=== PATIENT | male | born 1950 | race Caucasian/White ===

== ENCOUNTER 2020-12-25 09:18 | Inpatient (IN) | payer OTHER ==
[~2020-12-25] VITALS: Ht 175.3 cm; Wt 95.3 kg
--- NOTE | ~2020-12-25 | HC ---
[facility] [place] [address] CONSULTATION Name: GOLDIEASIAJORDON Room #: 352-P ADM IN M.R.#: [id number] Admission: 12/25/20 Attend Phys: Rolando Egan MD Discharge: Date of : 46 Report #: [id number] THIS REPORT FOR: cc: Kyler Bolanos Aaron DO Al-Absi,Li Will MD ~ DOC #: [id number] Li Silva MD REASON FOR PRESENTATION: Inability to speak, right-sided facial droop. REASON FOR CONSULTATION: End-stage renal disease. HISTORY OF PRESENT ILLNESS: The patient is a 69-year-old who was not able to tell me about the details of his presentation or past medical history. What I gathered is that he is in end-stage renal disease, was started on dialysis a few months ago. He has longstanding diabetes mellitus and hypertension. Apparently, the patient was at [facility] for a massive stroke per the medical records, that left him with cognitive deficits and limited mobility and he is now residing in a nursing facility. He was in the nursing facility and he had some issues with a facial droop and inability to speak per the nursing staff. He was sent to the emergency room for further evaluation. CT scan revealed multiple old CVAs, but no new CVA. He has a pacemaker. As stated above, the patient is known to have end-stage renal disease and is dialyzing every Tuesday, Tuesday and Tuesday. I was consulted to manage the patient's dialysis related issues. Neurology was consulted regarding his neurological presentation. PAST MEDICAL HISTORY: 1. AFib,. 2. Diabetes mellitus. 3. End-stage renal disease, maintained on hemodialysis. 4. Long-term anticoagulation. 5. Hypertension. 6. Patient is maintained on Keppra for unclear reasons to the patient. ALLERGIES: CODEINE. FAMILY HISTORY: I am not able to ascertain family history given the patient's limited cognitive ability. REVIEW OF SYSTEMS: I am not able to ascertain the patient's review of systems given his cognitive deficits. SOCIAL HISTORY: He came from a nursing facility. No other details are available. [facility] [address] [place] [address] CONSULTATION Name: GOLDIEASIAJORDON Room #: 352-P [facility] IN [facility]#: [id number] Admission: 12/25/20 Attend Phys: Rolando Egan MD Discharge: Date of : 46 Report #: [id number] PHYSICAL EXAMINATION GENERAL: He is awake, able to give me some details, but has limited thought process. VITAL SIGNS: Blood pressure is 153/83, temperature is 36.6, pulse rate is 90. HEAD AND NECK: No jugular venous distention. CHEST: No crackles. CARDIOVASCULAR: No rub. ABDOMEN: Soft, nontender. EXTREMITIES: Lower extremities, no edema. LABORATORY DATA: Sodium is 139, potassium is 3.6, blood urea nitrogen is 36, creatinine is 3.3. Hemoglobin is 10.2. ASSESSMENT, IMPRESSION AND PLAN: 1. End-stage renal disease. 2. Diabetes mellitus. 3. Transient ischemic attack. 4. History of atrial fibrillation. 5. Arrangement for the patient to have the usual dialysis today. 6. Neurology following regarding his stroke related issues. 7. We will continue to evaluate the patient during his hospital stay for his dialysis needs. Li Silva MD AIA/CHRISTINE By: 1 20 Li Silva MD /nt
[~2020-12-25 09:18] MED LIST: ACETAMINOPHEN325 M1 PO; ACTOS 30 MG TAB30 M1 PO; AMLODIPINE BESYL5 MG PO; ASPIRIN EC81 M1 PO; BYETTA PEN 11 PENIN1 SUBQ; CO Q-10100 MG PO; COENZYME Q1050 M1 PO; CRESTOR5 MG PO; DIABETES HEALT1 EAC1 PO; FERREX-150 PLU150 MG PO; FISH OIL 1,0001 EAC5 PO; GLUCOPHAGE500 MG PO; GLUCOSAMINE HC500 MG PO; GLYBURIDE 5 MG T5 M1 GT; GLYBURIDE 5 MG T5 M1 PO; LOPRESSOR 50 MG50 M1 PO; NIFEDICAL XL60 MG PO; NORCO 5-325 TA1 EACH PO; PACERONE 200 M200 M1 PO; PERCOCET 5-3251 EACH PO; ULORIC80 MG PO; UNICOMPLEX M TA1 TA1 PO; VITAMINC500 PO; WELCHOL3.75 GM PO; ZESTRIL5 MG PO; ZINC CHELATE50 MG PO
[2020-12-25 09:20] VITALS: BP 104/55
[2020-12-25 10:42] LABS: ABSOLUTE NEUTROPHILS 9.1 thou/uL (1.4-8.2); BASOPHILS 0.8 % (0.0-2.0); EOSINOPHILS 2.4 % (0.0-3.0); HEMATOCRIT 30.5 % (42.0-52.0); HEMOGLOBIN 9.7 gm/dL (14.0-18.0); LYMPHOCYTES 6.6 % (24.0-44.0); MCH 28.2 pg (26.0-34.0); MCHC 31.9 g/dL (28.0-37.0); MCV 88.5 fL (80.0-100.0); MONOCYTES 7.8 % (1.0-8.0); PLATELET COUNT 293 thou/uL (150-400); POLYS 82.4 % (36.0-66.0); RBC 3.45 mil/uL (4.50-6.00); RDW 15.3 % (10.5-14.5)
[2020-12-25 10:58] LABS: APTT 31.4 Seconds (24.5-32.8); INR 1.59
[2020-12-25 11:09] LABS: ANION GAP 9 mmol/L (7-16); BUN 36 mg/dL (7-18); CALCIUM 9.3 mg/dL (8.5-10.1); CHLORIDE 100 mmol/L (98-107); CO2 30 mmol/L (21-32); CREATININE 3.3 mg/dL (0.7-1.3); GLUCOSE 192 mg/dL (74-106); POTASSIUM 3.6 mmol/L (3.5-5.1); SODIUM 139 mmol/L (136-145)
[2020-12-25 11:17] LABS: ALBUMIN 2.3 g/dL (3.4-5.0); MAGNESIUM 2.1 mg/dL (1.8-2.4); SGOT 18 U/L (15-37); SGPT 20 U/L (16-63); TOTAL BILIRUBIN 0.4 mg/dL (0.2-1.0); TOTAL PROTEIN 7.2 g/dL (6.4-8.2); TROPONIN-I <0.06 ng/mL (<0.06)
[2020-12-25] MEDS ORDERED: CALCITRIOL0.25 MCG PO (11:56)
[2020-12-25] MEDS ORDERED: CARVEDILOL25 MG PO (11:57)
[2020-12-25] MEDS ORDERED: VITAMIN D3 (11:58)
[2020-12-25] MEDS ORDERED: ALLEGRA ALLERG180 MG PO (11:59)
[2020-12-25] MEDS ORDERED: COLACE100 MG PO (11:59)
[2020-12-25] MEDS ORDERED: CARDURA4 MG PO (11:59)
[2020-12-25] MEDS ORDERED: LANTUS SUBQ (12:00)
[2020-12-25] MEDS ORDERED: HUMALOG100 UNIT/1 SUBQ (12:01)
[2020-12-25] MEDS ORDERED: BIDIL TABLET1 EACH PO (12:02)
[2020-12-25] MEDS ORDERED: KEPPRA XR500 MG PO (12:03)
[2020-12-25] MEDS ORDERED: SENNA8.8 MG/5 M PO (12:03)
[2020-12-25] MEDS ORDERED: FLOMAX0.4 MG PO (12:03)
[2020-12-25] MEDS ORDERED: WARFARIN SODIUM4 MG PO ×2 (12:04→12:05)
[2020-12-25] MEDS ORDERED: REPATHA PU420 MG/3.5 SUBQ (12:06)
[2020-12-25] MEDS ORDERED: WARFARIN SODIUM5 MG PO (12:10)
[2020-12-25 14:05] VITALS: BP 112/48
--- NOTE | 2020-12-25 15:33 | NUR ---
Inpatient room assigned at 14:04, not clean. Process Trainer notified.
[2020-12-25 15:50] VITALS: BP 140/70
[2020-12-25 16:00] VITALS: BP 154/92
--- NOTE | 2020-12-25 16:01 | EKG ---
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
--- NOTE | 2020-12-25 16:01 | EKG ---
[address] [address] ELECTROCARDIOGRAM REPORT Name: JORDON BETANCOURT Room #: 170-6 ADM IN M.R.#: [id number] Admission: 12/25/20 Attend Phys: Rolando Egan MD Discharge: Date of : 46 Report #: [id number] 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 : 1950 Requested By: Sergio Geller Order Number: [id number] MD: Conner Esteban Measurements Intervals [place] Rate: 60 P: 0 MS: 48 QRS: -130 QRSD: 141 T: 143 QT: 580 QTc: 580 Interpretive Statements Ventricular-paced complexes No further rhythm analysis attempted due to paced rhythm Right bundle branch block Inferior infarct, old Anterior infarct, old Baseline wander in lead(s) V6 Compared to ECG 08/01/2012 08:53:46 Right bundle-branch block now present Sinus rhythm no longer present Intraventricular conduction delay no longer present Myocardial infarct finding still present Electronically Signed On 12-25-2020 16:00:51 CDT by Conner Esteban [email or web address] <ELECTRONICALLY SIGNED> By: Conner Esteban MD, FACC 12/25/201599 07 07 Conner Esteban MD, [facility] /EPI
--- NOTE | 2020-12-25 18:45 | NUR ---
PT CURRENTLY HAS BEEN DIALYSING ABOUT 2 WEEKS AT [facility] [phone].
[2020-12-25 20:24] VITALS: BP 115/56
[2020-12-26 04:05] VITALS: BP 153/83
[2020-12-26 05:06] LABS: HEMATOCRIT 31.3 % (42.0-52.0); HEMOGLOBIN 10.2 gm/dL (14.0-18.0); MCH 28.7 pg (26.0-34.0); MCHC 32.7 g/dL (28.0-37.0); MCV 87.9 fL (80.0-100.0); RBC 3.56 mil/uL (4.50-6.00); RDW 15.3 % (10.5-14.5); WBC 8.9 thou/uL (4.0-11.0)
--- NOTE | 2020-12-26 06:20 | NUR ---
VSS OVERNIGHT. TELE SHOWS VPACED ON MONITOR. PT HAD X1 INCONTINENCE OF URINE. FOLLOWING POC AND PT WILL HAVE DIALYSIS. HOURLY ROUNDING.
[2020-12-26 07:07] VITALS: BP 156/79
[2020-12-26] MEDS ORDERED: KEPPRA1000 MG PO (08:19)
[2020-12-26 09:19] LABS: INR 1.69
[2020-12-26 11:26] VITALS: BP 145/81
--- NOTE | 2020-12-26 14:04 | NUR ---
INITIAL ASSESSMENT: HERMES reviewed chart and spoke with nursing and attending physician. Pt was admitted from [facility] SNF due to possible CVA. Pt with hx of CVA. Pt also with hx ESRD and goes to outpatient dialysis at [facility] MWF. Per attending, pt will be ready for discharge back to [facility] tomorrow. HERMES faxed clinical/therapy info to [facility] and spoke with Juani in admissions, who confirmed they are able to accept pt back over the weekend. Staff to contact Juani to coordinate discharge. Pt is currently there as skilled with plan to transition to LTC. HERMES spoke with pt's son, Pravin, via phone. Introduced role of HERMES. Pt's son confirms plan is for pt to return to [facility] and is agreeable with weekend discharge plan. Pravin requests staff contact his , Sherif, when discharge plans are in place. HERMES spoke with Angelic at [facility] to notify of pt's weekend discharge. Pt will resume his regular outpatient dialysis on Tuesday, 12/29. Finalized discharge orders/summary will need to be faxed to both [facility] and [facility]. Nursing to call report and chart copy will need to be completed. HERMES is available to assist should needs arise. [facility]-- Juani (Admissions): [phone]
[2020-12-26 15:40] VITALS: BP 141/80
--- NOTE | 2020-12-26 19:29 | NUR ---
ASSUMED PATIENT CARE AT 0700. A/O X3. PT/OT WORKED WITH PATIENT. 1.5L MOVED BY HD. VSS. PROGRESSING TOWARDS POC GOALS.
[2020-12-26 19:30] VITALS: BP 139/73
[2020-12-27 03:29] VITALS: BP 142/70
[2020-12-27 04:57] LABS: INR 1.86; PROTIME 19.7 Seconds (10.5-12.1)
[2020-12-27 07:13] VITALS: BP 155/81
--- NOTE | 2020-12-27 07:49 | NUR ---
PT IS ON BEDREST DUE TO RECENT FALL HISTORY AND ASSOCIATED WEAKNESS. PT STATED THAT DIALYSIS MAKES HIM VERY TIRED AND LETHARGIC. X1 URINE INCONTINENCE. FOLLOW POC WITH SEIZURE MEDICATION AND BLOOD SUGAR MEDICATIONS. CALL LIGHT WITHIN REACH.
--- NOTE | 2020-12-27 09:31 | NUR ---
ASSUMED PT CARE AT [facility]. PT IS A&OX2, R SIDED WEAKNESS, BUT ABLE TO HELP TURN HIMSELF FOR BEDPAN/LINEN CHANGE. PT ABLE TO SWALLOW PILLS WHOLE WITH THIN LIQUIDS. PLACED PT IN SITTING UPRIGHT POSITION FOR BREAKFAST. PT DTR-IN-LAW LEN BETANCOURT CALLED THIS RN TO DISCUSS THE FACILITY, FUENTES YEARS, REQUESTING A RELEASE FROM ORTHOPEDICS ON HIS L WRIST SO THEY CAN START THERAPY WITH HIM UPON RETURN TO FACILITY. INJURY TO L WRIST SUSTAINED WHILE PT WAS IN FACILITY, PRIOR TO THIS HOSPITAL VISIT. PREVIOUS RECORDS ABOUT WRIST NOT AVAILABLE AT THIS TIME. ORTHO CONSULT HAS NOT BEEN PLACED AT THIS TIME. THIS RN INFORMED HOSPITALIST.
[2020-12-27] MEDS ORDERED: ELIQUIS5 MG PO (10:55)
[2020-12-27 11:10] VITALS: BP 135/71
[2020-12-27 14:35] VITALS: BP 135/71
--- NOTE | 2020-12-27 14:51 | NUR ---
PT LEFT UNIT AT 1435 WITH [facility]. BELONGINGS WITH PT. IV AND TELE MONITOR REMOVED. REPORT CALLED TO FUENTES YEARS. DOCUMENTS FAXED AND COPIES SENT WITH PT. THIS RN CALLED CLARENCE CAZARES AND LEFT MESSAGE UPDATE OF PT DC.
--- NOTE | 2021-01-01 17:58 | HC ---
[facility] [place] [address] CONSULTATION Name: GOLDIEASIAJORDON Room #: 352-P [facility] IN M.R.#: [id number] Admission: 12/25/20 Attend Phys: Rolando Egan MD Discharge: 12/27/20 Date of : 46 Report #: [id number] THIS REPORT FOR: cc: Kyler Bolanos Aaron DO Khosla,Manuel Alfonso MD ~ DOC #: [id number] Manuel Nj MD DATE OF SERVICE: 12/25/2020 HISTORY OF PRESENT ILLNESS: This is a 69-year-old male patient, who was seen by me for what looks like a poorly-defined episode. I reviewed the notes. I talked to the family and I called and talked to Dr. Egan, the admitting doctor. The way I understand from the family is that this patient had a massive stroke and was in [facility] that left him with cognitive deficits and limited mobility and he is in a skilled nursing. They said they also came here to this hospital, but I do not find any records from that time and it may have been purged. He had an episode of right-sided facial droop, some difficulty speaking. He feels back to his baseline. He underwent a CT scan of the head in the emergency room and I reviewed that and CT scan demonstrate multiple old CVA, but no new CVA. He has a pacemaker and is not sure if the pacemaker is compatible with MRI or not. He is a dialysis patient as I understand. REVIEW OF SYSTEMS: Indicate that patient had a bypass surgery in the past. He had, what looks like, TIA because his episode has resolved. I do not know what his blood sugar was when it happened. He has a history of hypertension, ischemic cardiomyopathy, atrial fibrillation, end-stage renal disease, and TIA as I understand. He is not complaining of any new eye, ENT, cardiac, respiratory, GI, , musculoskeletal, constitutional, dermatological, hematological, psychiatric, throat, allergic symptom associated with present symptomatology. PAST MEDICAL HISTORY: Positive for atrial fibrillation. He is also on Keppra, but it is not clear why he is on Keppra. FAMILY HISTORY: Unremarkable. SOCIAL HISTORY: Lives in a skilled nursing. His son and [id number] was here and I talked to them. NEUROLOGIC: The patient's examination indicate he is alert. He is responsive. His speech to me looks intact. He says he is back to his baseline. His memory and fund of knowledge is poor, but that is his baseline, but he can still tell me what month it is. CRANIAL NERVE EXAMINATION: Visual field was difficult to check in this patient, [address] [place] [address] CONSULTATION Name: JORDON BETANCOURT Room #: 352-P [facility] IN ..#: [id number] Admission: 12/25/20 Attend Phys: Rolando Egan MD Discharge: 12/27/20 Date of : 46 Report #: [id number] but otherwise I think it was mostly intact. He moves all 4 extremities, but appeared to be weak all over. To me, it looks like more weak on the right side as compared to the left side, but I do not know what his baseline is. He thinks it is his baseline. Family thinks it is his baseline. He says he can feel on both sides. His tone was symmetrical. I could not look at the fundus. I did not make him walk. He does not have any edema. He is an obese individual whose hearing and vision looks adequate. VITAL SIGNS: Blood pressure is 112/48, but it has been lower. Pulse is 60, respirations 15. LABORATORY DATA: Indicate a white count of 11. His CT scan demonstrated multiple strokes. IMPRESSION AND PLAN: 1. Transient ischemic attack versus small cerebrovascular accident in spite of being on Coumadin, but his INR is therapeutic. RECOMMENDATIONS: Testing is going to be limited in this patient. This is because of his kidney condition and pacemaker. I will do a carotid Doppler. If the carotid Doppler shows some abnormality, we can proceed accordingly. Otherwise, the main thing is going to be adjusting his anticoagulation after talking to the renal. I will also check an EEG to make sure there was not a nonconvulsive seizure. He will need PT, OT as well as echocardiogram and that was ordered. I discussed all of it with the family and they understand it and they want to follow the above plan. Thank you very much for this referral and if you have any questions, please feel free to contact me. Manuel Nj MD PK/SOCRATES <ELECTRONICALLY SIGNED> By: Manuel Nj MD 01/01/21 1758 1337 0025 Manuel Nj MD /nt
--- NOTE | 2021-01-01 17:58 | EEG ---
[facility] [place] [address] ELECTROENCEPHALOGRAM Name: JORDON BETANCOURT Room #: 352-P [facility] IN M.R.#: [id number] Admission: 12/25/20 Attend Phys: Rolando Egan MD Discharge: 12/27/20 Date of : 46 Report #: [id number] THIS REPORT FOR: //name// DOC #: [id number] Manuel Nj MD DATE OF SERVICE: 12/25/2020 This patient is being evaluated for the possibility of seizure versus TIA. The EEG was done by placing the electrode by standard 10-20 system of electrode placement. Both referential and sequential montages were used for recording. Background activity in this patient's EEG is about 7 Hz and 30 microvolt. Photic stimulation is unremarkable. Throughout the record, no active epileptiform activity was noticed. IMPRESSION: This EEG is intermixed with theta range slowing on both sides. There is a nonspecific abnormality which can occur with encephalopathy, effect of psychotropic medication, dementia, etc. Clinical correlation is recommended. Manuel Nj MD PK/KDA <ELECTRONICALLY SIGNED> By: Manuel Nj MD 01/01/21 1758 0927 1148 Manuel jN MD /nt
== END 2020-12-27 14:35 | DRG 69 ==
LOC: ER 09:18 → 3W 12:32 → EROBS 12:32 → 3W 16:33
PROVIDERS: Emergency Medicine; ADMIT Hospitalist; ATTEND Hospitalist
DX: G45.9 Transient cerebral ischemic attack, unspecified (principal); N18.6 End stage renal disease; G93.40 Encephalopathy, unspecified; I12.0 Hypertensive chronic kidney disease with stage 5 chronic kidney disease or end stage renal disease; E11.22 Type 2 diabetes mellitus with diabetic chronic kidney disease; I48.91 Unspecified atrial fibrillation; Z79.01 Long term (current) use of anticoagulants; Z95.1 Presence of aortocoronary bypass graft; Z88.6 Allergy status to analgesic agent; Z88.8 Allergy status to other drugs, medicaments and biological substances; Z79.82 Long term (current) use of aspirin; Z79.899 Other long term (current) drug therapy
CPT/HCPCS: 10879; 32100